=== PATIENT | female | born 1930 | race Caucasian/White ===

== ENCOUNTER 2017-05-05 07:36 | Observation (INO) | payer MEDICARE, OTHER ==
[2017-05-05] MEDS ORDERED: Ondansetron HCl/PF 4 MG/2 ML Vial ONE ×2 (08:40→10:37)
[2017-05-05] MEDS ORDERED: Fentanyl 100 MCG/2 ML VIAL ONE ×5 (08:40→14:47)
[2017-05-05] MEDS ORDERED: Adacel (T-DAP) 0.5 ML VIAL ONE (08:40)
--- NOTE | 2017-05-05 09:27 | RAD ---
RIGHT SHOULDER 2 VIEWS: Date: 05/05/17 HISTORY: Right shoulder pain. FINDINGS/IMPRESSION: A right humeral head prosthesis is present. There is an oblique fracture of the distal shaft of the right humerus with lateral displacement of a distal fragment. POS: KATHY
--- NOTE | 2017-05-05 09:27 | RAD ---
RIGHT HUMERUS 1 VIEW: Date: 05/05/17 HISTORY: Right arm and shoulder pain. FINDINGS/IMPRESSION: There is a displaced oblique fracture involving the distal shaft of the right humerus. A humeral hea d prosthesis is present. POS: KATHY
--- NOTE | 2017-05-05 09:30 | CT ---
CT HEAD WITHOUT IV CONTRAST: Date: 05/05/17 HISTORY: Injury after a fall. Patient landed on right side. COMPARISON: None available. FINDINGS: Scattered low density areas are seen in periventricular white matter which are nonspecific but likel y reflective of chronic small vessel ischemic changes. There is no evidence of an acute cortical inf arction, hemorrhage, mass effect, or midline shift. There is mild cerebral volume loss. The ventricu lar system is normal in size, shape, and position for the degree of sulcal atrophy. There is a small amount of scalp soft tissue swelling in the right anterolateral frontal region. Lopez varial structures are intact and no palpable fracture is seen. Visualized paranasal sinuses and mast oid air cells are clear. IMPRESSION: 1. No acute intracranial abnormality is demonstrated. 2. Mild chronic small vessel ischemic changes. 3. Small right anterolateral frontal scalp hematoma. POS: [facility]
[2017-05-05 10:05] LABS: #Basophils 0.1 thou/uL (0.0-0.2); #Eosinphils 0.1 thou/uL (0.0-0.7); #Lymphocytes 0.8 thou/uL (1.20-3.40); #Monocytes 0.6 thou/uL (0.11-0.59); #Neutrophils 10.9 thou/uL (1.40-6.50); %Basophils 0.5 % (0.0-1.0); %Eosinophils 0.7 % (0.0-10.0); %Lymphocytes 6.4 % (21.0-51.0); Hematocrit 43.3 % (36.0-47.0); Mean Platelet Volume 6.3 fL (7.4-10.4); Red Blood Cell (RBC) Count 4.61 mill/uL (4.20-5.40); White Blood Cell (WBC) Count 12.5 thou/uL (4.8-10.8)
[2017-05-05 10:12] LABS: PTT 27.4 SEC (22.9-36.1); Prothrombin Time 13.8 SEC (12.0-14.7)
[2017-05-05 10:25] LABS: ALT (SGPT) 19 U/L (8-55); AST (SGOT) 26 U/L (5-34); Alkaline Phosphatase 76 U/L (40-150); Anion Gap 11 mmol/L (10-20); BUN (Urea Nitrogen) 18 mg/dL (9.8-20.1); Bilirubin, Total 0.6 mg/dL (0.2-1.2); Calc. Creatinine Clearance 0 mL/min (70-130); Calcium 9.2 mg/dL (7.8-10.44); Carbon Dioxide 23 mmol/L (23-31); Chloride 105 mmol/L (98-107); Estimated GFR-MDRD 67; Protein, Total 6.8 g/dL (6.0-8.3)
[2017-05-05] MEDS ORDERED: Ketorolac Tromethamine 30 MG/ML VIAL ONE ×2 (10:37→12:16)
--- NOTE | 2017-05-05 10:38 | CON ---
DATE OF CONSULTATION: 05/05/2017 HISTORY: We were asked to see patient via Trauma and the Emergency Room. The patient got up this m orning was going to get a drink. She had her shoes on and tripped over a carpet or a rise and fell on her right outstretched arm and sustained a right distal humerus fracture. The patient had instan taneous pain. She states she has a little bit of tingling into her hands, but that she has good sen sations. No loss of consciousness, no other injuries that she can recall or feels currently due to the fall. ALLERGIES: No known drug allergies. CURRENT MEDICATIONS: Amlodipine, paroxetine, carvedilol, acyclovir. PAST MEDICAL HISTORY: Hyperlipidemia, hypertension, osteoarthritis. PAST SURGICAL HISTORY: Two ectopic pregnancies, orthopedic surgery on her right shoulder, right hip . SOCIAL HISTORY: No alcohol or nicotine products. REVIEW OF SYSTEMS: Complains of significant right upper extremity pain. Denies any chest pain, tanna rtness of breath, bowel or bladder problems, no HEENT problems and no extremity problems except the right upper extremity is obviously fractured. PHYSICAL EXAMINATION: GENERAL: Well-nourished, well-developed, very friendly sweet lady who is in a moderate amount of di stress, especially if we move that right upper extremity. Her speech is clear. Affect pleasant. A nswers questions appropriately. She is alert and oriented x3. Daughter is at the bedside with her. HEENT: Normal exam. EXTREMITIES: Left upper extremity; strength, size, shape, symmetry is all within normal limits as a re her motor movements. Right upper extremity, a bruise to the distal aspect of the upper arm over the humerus area, lots of pain. She is able to wiggle her fingers a little bit and has good proprio ception on that right upper extremity, but with supporting her arm she is unable to do a wrist exten mk. So there is some concern regarding the radial nerve. The rest of the physical examination is normal. ASSESSMENT: Right humerus fracture with some decreased sensations and strengths in the right upper extremity. PLAN: The patient is set up for the OR. We have discussed risks and benefits of doing an open redu ction internal fixation surgery on that right upper humerus and they are amenable to go forth with s sofi. She is a patient of Dr. Escamilla's. The ER did call Dr. Escamilla, but he is unable to perfor m any surgical interventions today or this weekend and the patient and family are happy with this an d we will get her set up for surgery today. She has been n.p.o. since early this morning, she just had a few sips of water. Her last meal was 5 o'clock last night. All their questions have been ans wered. The patient is comfortable getting her arm fixed today. She is a fairly significant amount of pain, so we want to get this going as soon as we can and that has been explained to the patient a nd family. I reviewed x-rays myself and Dr. Martinez, explained the findings to the patient and the need to go under surgical repair.
[2017-05-05] MEDS ORDERED: Scopolamine 1.5 mg/72 hour Patch ONE (11:38)
[2017-05-05] MEDS ORDERED: ePHEDrine/0.9% NaCl/PF SYRINGE 50 mg/10 ml ONE (12:16)
[2017-05-05] MEDS ORDERED: Glycopyrrolate 0.2 MG/ML 5 ML SYRINGE ONE (12:16)
[2017-05-05] MEDS ORDERED: Lidocaine 1% PF 5 ML VIAL ONE (12:16)
[2017-05-05] MEDS ORDERED: Propofol 200 MG/20 ML VIAL ONE (12:16)
--- NOTE | 2017-05-05 12:44 | HP-2 ---
DATE OF ADMISSION: 05/05/2017 ATTENDING PHYSICIAN: Marcus Lima DO CHIEF COMPLAINT: Falling. HISTORY OF PRESENT ILLNESS: This is an 86-year-old female who says she was walking in her kitchen h as linoleum floor, said she slipped and fell on her right side. She said she does report also hitti ng her head, reported having immediate right upper arm pain and some right shoulder pain. Denies an y chest pain or shortness of breath. Denies any abdominal pain or lower extremity pain. Patient de nies any headache, loss of consciousness, or dizziness. Denies any other problems at this time. Melissa best did report in the ER, she received 10 of morphine in the ambulance and 25 of fentanyl. Rachel graff did report that caused her O2 sats dropped to 90, was having a little trouble breathing thought cynthia denise was a little sensitive to the morphine. REVIEW OF SYSTEMS: All review of systems not listed in HPI are negative at this time. PAST MEDICAL HISTORY: Hypertension, hyperlipidemia, and osteoarthritis. PAST SURGICAL HISTORY: She has had bilateral carpal tunnel release surgery. She has had surgeries for two ectopic pregnancies. She has had a partial repair of her right shoulder. She has had a rig ht hip replacement and she has had an appendectomy. MEDICATIONS: Amlodipine 10 mg, paroxetine 10 mg, carvedilol 6.25 mg, and acyclovir 400 mg. DRUG ALLERGIES: No known drug allergies. FAMILY HISTORY: Insignificant at this time. SOCIAL HISTORY: Never a smoker. Does not drink alcohol and no illicit drug use. PHYSICAL EXAMINATION: VITAL SIGNS: Blood pressure 140/72, pulse of 60, respirations 20, temperature is 98.2, O2 sat was 9 5% on 2 liters of oxygen. GENERAL: She is alert and oriented x3. HEAD: Normocephalic, atraumatic. No bruising noted in her head. She does have just a slight littl e jake on her right upper forehead, but no bruising or acute trauma noted. EYES: Normal. ENT: Normal. NECK: Supple. No thyromegaly, no bruits. RESPIRATORY: Lungs are clear to auscultation. No wheezes, no crackles. Symmetric chest expansion and nontender to palpation. CARDIOVASCULAR: Regular rate and rhythm. No murmurs or gallops heard. ABDOMEN: Nontender to palpation, soft. No masses or distention. Bowel sounds heard in all 4 quadr ants. EXTREMITIES: Upper extremity: Patient has extreme pain in her right arm, very limited movement. A ble to move her left arm. Able to move her lower leg extremities, nontender to palpation of her nec k. Does have some pain when she moves her neck, but pain is in her right arm. Lower extremities: She does have some pain to palpation in her ankles bilaterally, has known osteoarthritis there. NEUROLOGIC: No neuro focal deficit. She is neurovascularly intact. Pedal pulses and radial pulses palpated bilaterally. SKIN: Normal. PSYCHIATRIC: Normal affect. LABORATORY AND X-RAY FINDINGS: White blood cell count is 12.5, hemoglobin is 14.4, hematocrit is 43 .3, platelet count is 185,000. Coags: PT 13.8, INR 1.1, aPTT 27.4. Chemistry: Sodium is 135, pot assium 4.3, chloride 105, carbon dioxide 23, anion gap 11, BUN is 18, creatinine is 0.81, glucose is 113, calcium is 9.2, total bilirubin 0.6, AST 26, ALT is 19, alkaline phosphatase is 76, serum tota l protein is 6.8, albumin is 3.8. Humerus x-ray, there is a displaced oblique fracture involving th e distal shaft of the right humerus, a humeral head prosthesis is present. Shoulder x-ray, right hu meral head prosthesis is present. There is an oblique fracture of the distal shaft of the right hum erus with lateral displacement of the distal fragment. Brain CT, no acute intracranial abnormalitie s demonstrated, mild chronic small vessel ischemic changes and small right anterior lateral frontal scalp hematoma. ASSESSMENT: 1. Status post mechanical fall. 2. Right humerus fracture. 3. Acute traumatic pain. 4. History of hypertension. 5. History of hyperlipidemia. 6. History of osteoarthritis. PLAN: Orthopedic Surgery has already been consulted. Plan is for surgery later today for repair of the fracture. We will give her some IV Toradol as she had some trouble with morphine and fentanyl with breathing. Creatinine is doing fine and then we will plan for a surgery and we will readjust p ain medications after surgery. We will consult with PT and OT for assessment tomorrow post-surgery. We will continue to monitor vital signs. We will recheck labs in the morning. At this time, the patient was seen and assessed with Dr. Marcus Lima. Dr. Marcus Lima was present during the admi ssion.
[2017-05-05] MEDS ORDERED: Ondansetron HCl/PF 4 MG/2 ML Vial IVP PRN ×2 (14:15→15:48)
[2017-05-05] MEDS ORDERED: Promethazine HCl 25 MG/ML VIAL IM/IV PRN (14:15)
[2017-05-05] MEDS ORDERED: Fentanyl 250 MCG/5 ML VIAL ONE (14:29)
--- NOTE | 2017-05-05 15:21 | RAD ---
TWO VIEWS RIGHT HUMERUS: Comparison: 05-05-17 History: ORIF right humerus fracture. FINDINGS/IMPRESSION: Two limited intraoperative fluoroscopic views of the right humerus were submitted for interpretation . The patient is status post plate and screw fixation of the distal humerus fracture. No perihardwar e lucency is seen. POS: [facility]ONNATH[facility]
[2017-05-05] MEDS ORDERED: Dextrose 5% in Water 1,000 ML IV PRN (15:48)
[2017-05-05] MEDS ORDERED: Ondansetron ODT 4 MG TAB PO PRN (15:48)
[2017-05-05] MEDS ORDERED: Dextrose 50% Abboject 50 ML SYRINGE SLOW IVP PRN (15:48)
[2017-05-05 17:14] VITALS: BMI 24.0
[2017-05-05] MEDS: Acetaminophen 500 MG TAB PO SCH ×2 (17:26→22:27)
[2017-05-05] MEDS ORDERED: ALPRAZolam 0.25 MG TAB PO PRN (17:48)
[2017-05-05] MEDS: Sodium Chloride 0.9% 1,000 ML IV SCH (18:03)
--- NOTE | 2017-05-05 19:52 | OP ---
DATE OF SURGERY: 05/05/2017 PREOPERATIVE DIAGNOSES: 1. Right distal humeral shaft fracture, closed. 2. Right radial neuropraxia. POSTOPERATIVE DIAGNOSES: 1. Right distal humeral shaft fracture, closed. 2. Right radial neuropraxia. SURGICAL PROCEDURE: Open reduction and internal fixation of right distal humerus. ANESTHESIA: General. SURGEON: Israel Martinez M.D. LAN SUPPORT SPECIALIST: Get Guerra PA-C. TOURNIQUET TIME: Zero. BLOOD LOSS: Approximately 100 mL. IMPLANTS: Synthes 3.5 mm LCP extraarticular humeral plate, 8-hole. COMPLICATIONS: None. DRAINS: None. SPECIMEN: None. OUTCOME: Satisfactory. INDICATIONS: The patient is an 86-year-old lady who is status post ground level fall at her home, l anding on her right side. She reports immediate right upper extremity pain. Upon arrival at [facility], x-rays were obtained that showed a long oblique fracture of the right distal [facility]us[facility] was found to have some mild paresthesias along the radial distribution and has weakness and wrist extension. After discussion with patient including risks and benefits, we decide d to proceed with open reduction and internal fixation and exploration of the radial nerve via poste rior approach. DESCRIPTION OF PROCEDURE: Following general anesthesia, the patient was positioned in the left late ral decubitus position with the right arm over a bolster. A sterile prep and drape was then perform ed. A posterior approach to the humerus was performed with an incision extending from the tip of th e olecranon up the posterior arm. After skin was sharply incised, dissection was carried down to th e underlying triceps tendon. This structure was incised in line with the skin incision and then radha nt dissection carried along the muscle belly proximally. The fracture was identified at this point and the radial nerve was found to be captured in the fracture proximally. This was able to be relea sed from the fracture fragments with ease when without excessive tension on the nerve. Once freed, it was observed through the remaining procedure to ensure that excessive tension was not applied to the nerve and that the hardware did not capture the nerve. Again, once the nerve was identified, th e fracture hematoma was lavaged from the wound and then the fracture was reduced and held in place w ith bone tenaculum. Next 2 interfragmentary compression screws were applied across the fracture fra gment. This was then followed by application of a 3.5 mm LCP extraarticular humeral plate extending from the posterolateral aspect of the elbow along the posterior aspect of the humerus. Once approp riately positioned, it was held in place provisionally with 2 cortical screws and then a total of 3 locking screws proximally and 3 more locking screws distally inserted to get excellent stabilization of the fracture and neutralization of the fracture. The nerve was again inspected and found to be free of any tethers and then the wound again irrigated with bulb syringe. This was closed in layers with 0 Vicryl for the triceps tendon and fascia, 2-0 Vicryl subcutaneously, and maria del rosario for the ski n. A Xeroform gauze, Webril, and posterior fiberglass splint was applied to the arm and then the pa tient was transferred to recovery room in stable condition. There were no complications. She reynaldo ated the procedure well.
[2017-05-05] MEDS: Acyclovir 400 mg Tablet PO SCH (20:22)
[2017-05-05] MEDS: Famotidine 20 MG TAB PO SCH (20:22)
[2017-05-05] MEDS: Carvedilol 6.25 MG TAB PO SCH (20:22)
[2017-05-05] MEDS ORDERED: FLU VACC TS2017-18 (>65YR) 0.5 ML SYRINGE IM ONE (21:00)
[2017-05-05] MEDS: traMADol HCl 50 MG TAB PO PRN (22:27)
[2017-05-06] MEDS: Acetaminophen 500 MG TAB PO SCH ×2 (05:21→11:00)
[2017-05-06] MEDS: Sodium Chloride 0.9% 1,000 ML IV SCH (05:22)
[2017-05-06 05:34] LABS: #Lymphocytes 0.5 thou/uL (1.20-3.40); #Monocytes 0.4 thou/uL (0.11-0.59); #Neutrophils 7.4 thou/uL (1.40-6.50); %Basophils 0.1 % (0.0-1.0); %Eosinophils 0.1 % (0.0-10.0); %Lymphocytes 5.5 % (21.0-51.0); %Monocytes 4.8 % (0.0-10.0); Hematocrit 36.2 % (36.0-47.0); Mean Platelet Volume 6.7 fL (7.4-10.4); White Blood Cell (WBC) Count 8.2 thou/uL (4.8-10.8)
[2017-05-06 05:53] LABS: Anion Gap 12 mmol/L (10-20); BUN (Urea Nitrogen) 19 mg/dL (9.8-20.1); Calc. Creatinine Clearance 53 mL/min (70-130); Calcium 8.3 mg/dL (7.8-10.44); Carbon Dioxide 19 mmol/L (23-31); Chloride 107 mmol/L (98-107); Estimated GFR-MDRD 69
[2017-05-06] MEDS: traMADol HCl 50 MG TAB PO PRN (08:12)
[2017-05-06] MEDS: Acyclovir 400 mg Tablet PO SCH (08:13)
[2017-05-06] MEDS: Famotidine 20 MG TAB PO SCH (08:13)
[2017-05-06] MEDS: Carvedilol 6.25 MG TAB PO SCH (08:13)
[2017-05-06] MEDS ORDERED: PARoxetine 20 MG TAB PO SCH (09:00)
[2017-05-06 11:39] VITALS: BP 123/64; TEMP 97.6
== END 2017-05-06 13:35 | disposition home health service, planned readmission (86) ==
LOC: ERS 07:36 → SDC/OP 10:56 → SURG A 14:56
PROVIDERS: ADMIT Surgery; ATTEND Surgery
PROC: 0PSF04Z Reposition Right Humeral Shaft with Internal Fixation Device, Open Approach (ICD-10-PCS; principal; 2017-05-05)
DX: S42.401A Unspecified fracture of lower end of right humerus, initial encounter for closed fracture (principal); S64.21XA Injury of radial nerve at wrist and hand level of right arm, initial encounter; I10 Essential (primary) hypertension; E78.5 Hyperlipidemia, unspecified; M19.90 Unspecified osteoarthritis, unspecified site; Z79.899 Other long term (current) drug therapy
CPT/HCPCS: 24586; 70450; 73030; 73060 ×2; 76001; 80048; 80053; 85025 ×2; 85610; 85730; 86850; 86900; 86901; 90471; 90715; 93005; 96361 ×3; 96374 ×2; 96375; 96376; 97116; 97139; 99285; C1713 ×3; G0008; G0378; G8978; G8979; Q2036; 36415; 90682; G0390; J1885; J2001; J2405; J2704; J3010

== ENCOUNTER 2017-12-06 11:07 | Outpatient (CLI) | payer MEDICARE, BC | END 2017-12-06 11:08 | disposition home or self-care (01) | LOC: BICMAMMO 11:07 | PROVIDERS: ATTEND Family Medicine | DX: Z12.31 Encounter for screening mammogram for malignant neoplasm of breast (principal); Z80.3 Family history of malignant neoplasm of breast | CPT/HCPCS: 77063; 77067 ==

== ENCOUNTER 2019-03-12 08:46 | Outpatient (CLI) | payer MEDICARE, BC ==
--- NOTE | 2019-03-12 11:35 | MMO ---
Bilateral MAMMO Bilat Screen [facility]. CLINICAL HISTORY: Patient is 88 years old and is seen for screening. The patient has the following family history of breast cancer: maternal aunt, at age 50. The patient has no personal history of cancer. VIEWS: The views performed were: bilateral craniocaudal with tomosynthesis and bilateral mediolateral oblique with tomosynthesis. FILMS COMPARED: The present examination has been compared to prior imaging studies performed at [facility] on 07/11/2014, 08/26/2015, 10/05/2016 and 12/06/2017. MAMMOGRAM FINDINGS: There are scattered fibroglandular densities. Benign calcifications are noted bilaterally. There are no suspicious masses, suspicious calcifications, or new areas of architectural distortion. IMPRESSION: THERE IS NO MAMMOGRAPHIC EVIDENCE OF MALIGNANCY. A ROUTINE FOLLOW-UP MAMMOGRAM IN 1 YEAR IS RECOMMENDED. THE RESULTS OF THIS EXAM WERE SENT TO THE PATIENT. ACR BI-RADS Category 2 - Benign finding MAMMOGRAPHY NOTE: 1. A negative mammogram report should not delay a biopsy if a dominant of clinically suspicious mass is present. 2. Approximately 10% to 15% of breast cancers are not detected by mammography. 3. Adenosis and dense breasts may obscure an underlying neoplasm. Reported by: JEFFRY CAMACHO MD Electonically Signed: [id number]
== END 2019-03-12 08:47 | disposition home or self-care (01) ==
LOC: BICMAMMO 08:46
PROVIDERS: ATTEND Family Medicine
DX: Z12.31 Encounter for screening mammogram for malignant neoplasm of breast (principal); Z80.3 Family history of malignant neoplasm of breast
CPT/HCPCS: 77063; 77067